=== PATIENT | female | born 1940 | race Caucasian/White ===

== ENCOUNTER 2017-10-02 15:54 | Inpatient (IN) | payer MEDICARE, OTHER ==
[2017-10-02] VITALS (12 sets, daily range): BP systolic 64–140; BP diastolic 44–72
[~2017-10-02] VITALS: Ht 170.2 cm; Wt 63.0 kg
[~2017-10-02 15:54] MED LIST: tirofiban 5mg in NS 100mL 100 ML IV SCH
[2017-10-02 16:29] LABS: BASOPHILS # (AUTO) 0.1 X10'3 (0-0.2); BASOPHILS % (AUTO) 0.7 % (0-1); EOSINOPHILS # (AUTO) 0.4 X10'3 (0-0.9); EOSINOPHILS % (AUTO) 4.8 % (0-6); HEMATOCRIT 36.1 % (35.0-45.0); HEMOGLOBIN 12.2 g/dl (12.0-16.0); MEAN CORPUSCULAR HEMOGLOBIN 29.3 PG (27.0-31.0); MEAN CORPUSCULAR HGB CONC 33.8 % (33.0-36.5); MEAN CORPUSCULAR VOLUME 86.7 FL (78-98); MEAN PLATELET VOLUME 8.3 FL (7.4-10.4); MONOCYTES # (AUTO) 0.8 X10'3 (0-0.9); MONOCYTES % (AUTO) 8.6 % (2-12); NEUTROPHILS # (AUTO) 4.8 X10'3 (1.8-7.7); NEUTROPHILS % (AUTO) 52.9 % (42-75); PLATELET COUNT 290 X10'3 (140-440); RED BLOOD COUNT 4.16 X10'6 (4.20-5.60); RED CELL DISTRIBUTION WIDTH 14.7 % (11.5-14.5)
[2017-10-02 16:44] LABS: ALANINE AMINOTRANSFERASE 26 U/L (12-78); ALBUMIN 3.1 G/DL (3.4-5.0); ALBUMIN/GLOBULIN RATIO 0.8 (1.1-1.5); ALKALINE PHOSPHATASE 92 IU/L (46-116); ANION GAP 10 (8-16); ASPARTATE AMINO TRANSFERASE 21 U/L (10-37); BILIRUBIN,TOTAL 0.2 MG/DL (0.1-1.0); BLOOD UREA NITROGEN 26 MG/DL (7-18); BUN/CREATININE RATIO 25.2 (6.6-38.0); CALCIUM 8.8 MG/DL (8.5-10.1); CHLORIDE 107 MMOL/L (99-107); CREATININE 1.03 MG/DL (0.40-0.90); GLUCOSE 115 MG/DL (70-104); POTASSIUM 4.4 MMOL/L (3.5-5.1); SODIUM 141 MMOL/L (135-145); TOTAL CARBON DIOXIDE 24.3 MMOL/L (24-32); TOTAL PROTEIN 7.1 G/DL (6.4-8.2); eGFR 52 ML/MIN
[2017-10-02] MEDS ORDERED: nicotine 21mg patch - 24 hr TD ONE (17:25)
[2017-10-02] MEDS: normal saline 1000ml 1,000 ML IV SCH (18:17)
[2017-10-02] MEDS ORDERED: potassium Cl 20 mEq SR tablet PO PRN ×2 (18:20)
[2017-10-02] MEDS ORDERED: magnesium 4gm in 100ml NS 100 ML IV PRN (18:20)
[2017-10-02] MEDS ORDERED: heparin 10,000 units/1 ML INJ IV ONE ×2 (18:20→18:35)
[2017-10-02] MEDS ORDERED: acetaminophen 325mg tablet PO PRN ×2 (18:20)
[2017-10-02] MEDS ORDERED: glucagon, human recombinant 1mg kit SUBCUT PRN (18:20)
[2017-10-02] MEDS ORDERED: potassium Cl 40MEQ/NS 500ml 500 ML IV PRN ×2 (18:20)
[2017-10-02] MEDS ORDERED: MESSAGE TO PHARMACY PO ONE (18:20)
[2017-10-02] MEDS ORDERED: magnesium 2GM in 50ml NS 50 ML IV PRN (18:20)
[2017-10-02] MEDS ORDERED: dextrose ORAL solution 15 GM/59 ML bottle PO PRN ×2 (18:20)
[2017-10-02] MEDS ORDERED: ondansetron/PF 4mg/2ml inj IV PRN ×2 (18:20→21:35)
[2017-10-02] MEDS ORDERED: magnesium hydroxide 30ml (MOM) UD suspension PO PRN (18:20)
[2017-10-02] MEDS ORDERED: dextrose 50%-water 50ml dispensing syringe IV PRN (18:20)
[2017-10-02] MEDS ORDERED: heparin 10,000 units/1 ML INJ IV PRN (18:20)
[2017-10-02] MEDS ORDERED: nitroGLYCERIN 0.4mg SUBLingual tab SL PRN ×2 (18:20→21:35)
[2017-10-02] MEDS ORDERED: magnesium Cl slow-release 64mg tablet PO PRN (18:20)
[2017-10-02] MEDS ORDERED: mag hydrox/Alum hydrox/simeth 30ml oral suspension PO PRN (18:20)
[2017-10-02] MEDS: K and/or MAG REPLACEMENT MC SCH (18:20)
[2017-10-02] MEDS ORDERED: insulin Lispro (HumaLOG) vial - multi-dose SQ SCH (18:20)
[2017-10-02] MEDS ORDERED: morphine 4 MG/ML inj SYRINge IV PRN ×2 (18:20)
[2017-10-02] MEDS ORDERED: iohexol 350 MG/1 ML 200ml bottle ONE ×2 (18:40→19:35)
[2017-10-02] MEDS ORDERED: LIDOcaine 1% w/EPI 1:100,000 30ml vial (MDV) ONE (18:40)
[2017-10-02 18:46] LABS: PARTIAL THROMBOPLASTIN TIME 61 SECONDS (22-32); PROTHROMBIN TIME 10.5 SECONDS (9.0-12.0)
[2017-10-02] MEDS ORDERED: midazolam 2 mg/2 ml injection ONE (19:09)
[2017-10-02] MEDS ORDERED: fentaNYL/PF 50MCG/1 ML 2ML syringe ONE (19:09)
[2017-10-02] MEDS ORDERED: heparin 1,000unit/ml 10ml vial 10 ML ONE (19:28)
[2017-10-02] MEDS ORDERED: tirofiban 5mg in NS 100mL 100 ML IV ONE (19:32)
[2017-10-02] MEDS ORDERED: ticagrelor 90mg tablet ONE (19:58)
[2017-10-02 20:32] LABS: HEMOGLOBIN A1C 6.7 % (4.5-6.2)
[2017-10-02] MEDS: insulin glargine (Lantus) pen - multi-dose SQ SCH (21:00)
[2017-10-02] MEDS ORDERED: temazepam 15mg capsule PO PRN (21:00)
[2017-10-02] MEDS ORDERED: HYDROcodone/acetaminophen 5mg/325mg tablet PO PRN (21:35)
[2017-10-02] MEDS ORDERED: normal saline 1000ml 1,000 ML IV SCH (21:35)
[2017-10-02] MEDS ORDERED: OXAZEpam 15mg capsule PO PRN (21:35)
[2017-10-02] MEDS ORDERED: HYDROcodone/acetaminophen 10/325mg tab PO PRN (21:35)
[2017-10-02] MEDS: proCHLORperazine 10 MG/2 ml inj IV PRN (22:01)
[2017-10-02] MEDS ORDERED: clopidogrel 300mg tablet PO ONE (23:20)
[2017-10-02 23:42] LABS: HEMATOCRIT 26.7 % (35.0-45.0); MEAN CORPUSCULAR HEMOGLOBIN 29.5 PG (27.0-31.0); MEAN CORPUSCULAR HGB CONC 33.5 % (33.0-36.5); MEAN CORPUSCULAR VOLUME 87.9 FL (78-98); MEAN PLATELET VOLUME 8.4 FL (7.4-10.4); PLATELET COUNT 259 X10'3 (140-440); RED BLOOD COUNT 3.04 X10'6 (4.20-5.60); RED CELL DISTRIBUTION WIDTH 14.9 % (11.5-14.5); WHITE BLOOD COUNT 8.3 X10'3 (4.5-11.0)
[2017-10-02] MEDS ORDERED: clopidogrel 300mg tablet ONE (23:58)
[2017-10-03] VITALS (24 sets, daily range): BP systolic 60–143; BP diastolic 40–102
[2017-10-03] MEDS ORDERED: furosemide 20 MG/2 ML vial IV ONE (01:40)
[2017-10-03] MEDS ORDERED: MORPHINE 2MG in 2ml NS syringe IV PRN (01:45)
[2017-10-03] MEDS ORDERED: MORPHINE 2MG in 2ml NS syringe IV STA (02:12)
[2017-10-03 04:11] LABS: BASOPHILS % (AUTO) 0.1 % (0-1); EOSINOPHILS # (AUTO) 0.1 X10'3 (0-0.9); EOSINOPHILS % (AUTO) 0.3 % (0-6); HEMATOCRIT 31.8 % (35.0-45.0); HEMOGLOBIN 10.4 g/dl (12.0-16.0); LYMPHOCYTES # (AUTO) 2.4 X10'3 (1.1-4.8); LYMPHOCYTES % (AUTO) 10.5 % (21-51); MEAN CORPUSCULAR HEMOGLOBIN 29.8 PG (27.0-31.0); MEAN CORPUSCULAR HGB CONC 32.7 % (33.0-36.5); MEAN CORPUSCULAR VOLUME 91.1 FL (78-98); MEAN PLATELET VOLUME 8.5 FL (7.4-10.4); MONOCYTES # (AUTO) 0.9 X10'3 (0-0.9); MONOCYTES % (AUTO) 3.8 % (2-12); NEUTROPHILS # (AUTO) 19.3 X10'3 (1.8-7.7); NEUTROPHILS % (AUTO) 85.3 % (42-75); PLATELET COUNT 255 X10'3 (140-440); RED BLOOD COUNT 3.49 X10'6 (4.20-5.60); RED CELL DISTRIBUTION WIDTH 15.6 % (11.5-14.5); WHITE BLOOD COUNT 22.6 X10'3 (4.5-11.0)
[2017-10-03 04:52] LABS: TOTAL CELLS COUNTED 100
[2017-10-03 04:53] LABS: ANISOCYTOSIS 1+; BURR CELLS 1+; PLATELET ESTIMATE NORMAL
[2017-10-03 04:54] LABS: TOXIC VACUOLATION FEW
[2017-10-03 06:42] LABS: ALANINE AMINOTRANSFERASE 185 U/L (12-78); ALBUMIN 2.3 G/DL (3.4-5.0); ALBUMIN/GLOBULIN RATIO 0.7 (1.1-1.5); ALKALINE PHOSPHATASE 133 IU/L (46-116); ANION GAP 26 (8-16); BILIRUBIN,TOTAL 0.5 MG/DL (0.1-1.0); BLOOD UREA NITROGEN 25 MG/DL (7-18); BUN/CREATININE RATIO 15.1 (6.6-38.0); CALCIUM 8.6 MG/DL (8.5-10.1); CHLORIDE 110 MMOL/L (99-107); CHOL/HDL RATIO 3.1 (0.00-4.99); CHOLESTEROL 102 MG/DL (0-200); CREATININE 1.66 MG/DL (0.40-0.90); GLUCOSE 178 MG/DL (70-104); HDL CHOLESTEROL 33 MG/DL (35-60); LDL CHOLESTEROL 62 MG/DL (50-100); MAGNESIUM 2.7 MG/DL (1.5-2.4); SODIUM 144 MMOL/L (135-145); TOTAL PROTEIN 5.6 G/DL (6.4-8.2); TRIGLYCERIDES 108 MG/DL (20-135); eGFR 30 ML/MIN
[2017-10-03 06:43] LABS: ASPARTATE AMINO TRANSFERASE 255 U/L (10-37); PHOSPHORUS 8.7 MG/DL (2.3-4.5)
[2017-10-03 07:08] LABS: TOTAL CARBON DIOXIDE 8.2 MMOL/L (24-32)
[2017-10-03] MEDS ORDERED: ticagrelor 90mg tablet PO SCH (08:00)
[2017-10-03] MEDS: K and/or MAG REPLACEMENT MC SCH (08:00)
[2017-10-03] MEDS ORDERED: clopidogrel 75mg tablet PO SCH (08:00)
[2017-10-03] MEDS: proCHLORperazine 10 MG/2 ml inj IV PRN (08:17)
[2017-10-03] MEDS ORDERED: aspirin 325mg tablet PO SCH (08:30)
[2017-10-03] MEDS ORDERED: aspirin 81mg tab.chew PO SCH (08:30)
[2017-10-03] MEDS ORDERED: TRAM50TA2 PO (08:55)
[2017-10-03] MEDS ORDERED: LEVO50TA8 PO (09:48)
[2017-10-03] MEDS ORDERED: NIFE60TA69 PO (09:48)
[2017-10-03] MEDS ORDERED: LANS30CA56 PO (09:48)
[2017-10-03] MEDS ORDERED: RAMI5CAP PO (09:48)
[2017-10-03] MEDS ORDERED: SIMV40TA PO (09:48)
[2017-10-03] MEDS ORDERED: VENL150T3 PO (09:48)
[2017-10-03] MEDS ORDERED: ONDA4TAB6 PO (09:48)
[2017-10-03] MEDS ORDERED: CLOP75TA35 PO (09:48)
[2017-10-03 10:07] LABS: ABG BASE EXCESS -13.5 mmol/L (-2.0-3.0); ABG HCO3 13.4 mmol/L (22.0-26.0); ABG OXYGEN SATURATION 95.1 % (95-98); ABG PCO2 (T) 34.5 mmHg (32.0-45.0); ABG PH (T) 7.207 (7.350-7.450); ABG PO2 (T) 74.8 mmHg (83-108); ALLEN'S TEST Positive; FCOHb 0.1 % (0.5-1.5); FLOW 21 L/min; TOTAL HEMOGLOBIN 12.9 G/dl (12.0-16.0)
[2017-10-03] MEDS: normal saline 1000ml 1,000 ML IV SCH ×4 (11:35→21:59)
[2017-10-03 12:08] LABS: HEMATOCRIT 37.1 % (35.0-45.0); HEMOGLOBIN 12.6 g/dl (12.0-16.0); MEAN CORPUSCULAR HEMOGLOBIN 29.6 PG (27.0-31.0); MEAN CORPUSCULAR VOLUME 87.1 FL (78-98); MEAN PLATELET VOLUME 8.3 FL (7.4-10.4); PLATELET COUNT 155 X10'3 (140-440); RED BLOOD COUNT 4.27 X10'6 (4.20-5.60); RED CELL DISTRIBUTION WIDTH 15.9 % (11.5-14.5)
[2017-10-03 12:12] LABS: WHITE BLOOD COUNT 31.4 X10'3 (4.5-11.0)
[2017-10-03 12:16] LABS: ALBUMIN 2.4 G/DL (3.4-5.0); ANION GAP 15 (8-16); BLOOD UREA NITROGEN 34 MG/DL (7-18); BUN/CREATININE RATIO 19.8 (6.6-38.0); CALCIUM 8.4 MG/DL (8.5-10.1); CHLORIDE 111 MMOL/L (99-107); CREATININE 1.72 MG/DL (0.40-0.90); GLUCOSE 90 MG/DL (70-104); SODIUM 144 MMOL/L (135-145); TOTAL CARBON DIOXIDE 18.5 MMOL/L (24-32); eGFR 29 ML/MIN
[2017-10-03 12:17] LABS: POTASSIUM 4.3 MMOL/L (3.5-5.1)
[2017-10-03] MEDS ORDERED: morphine 4 MG/ML inj SYRINge IV PRN ×2 (15:10)
[2017-10-03] MEDS: dextrose 50%-water 50ml dispensing syringe IV PRN ×2 (17:17→22:21)
[2017-10-03] MEDS ORDERED: albumin (Human) 5% 250ml 0 ML IV ONE (17:53)
[2017-10-03 17:57] LABS: BASOPHILS % (AUTO) 0.1 % (0-1); EOSINOPHILS % (AUTO) 0.1 % (0-6); HEMOGLOBIN 11.7 g/dl (12.0-16.0); LYMPHOCYTES % (AUTO) 3.4 % (21-51); MEAN CORPUSCULAR HEMOGLOBIN 29.2 PG (27.0-31.0); MEAN CORPUSCULAR HGB CONC 33.5 % (33.0-36.5); MEAN CORPUSCULAR VOLUME 87.3 FL (78-98); MEAN PLATELET VOLUME 9.4 FL (7.4-10.4); MONOCYTES # (AUTO) 0.3 X10'3 (0-0.9); MONOCYTES % (AUTO) 1.1 % (2-12); NEUTROPHILS # (AUTO) 29.2 X10'3 (1.8-7.7); NEUTROPHILS % (AUTO) 95.3 % (42-75); PLATELET COUNT 153 X10'3 (140-440)
[2017-10-03 18:01] LABS: WHITE BLOOD COUNT 30.6 X10'3 (4.5-11.0)
[2017-10-03] MEDS ORDERED: albumin (human) 25% 100 ML IV solution IV ONE (18:15)
[2017-10-03 18:19] LABS: ALANINE AMINOTRANSFERASE 408 U/L (12-78); ALBUMIN 2.4 G/DL (3.4-5.0); ALBUMIN/GLOBULIN RATIO 0.8 (1.1-1.5); ALKALINE PHOSPHATASE 109 IU/L (46-116); ANION GAP 24 (8-16); ASPARTATE AMINO TRANSFERASE 704 U/L (10-37); BILIRUBIN,TOTAL 0.8 MG/DL (0.1-1.0); BLOOD UREA NITROGEN 41 MG/DL (7-18); BUN/CREATININE RATIO 16.9 (6.6-38.0); CALCIUM 8.4 MG/DL (8.5-10.1); CHLORIDE 108 MMOL/L (99-107); CREATININE 2.42 MG/DL (0.40-0.90); POTASSIUM 4.9 MMOL/L (3.5-5.1); SODIUM 144 MMOL/L (135-145); TOTAL PROTEIN 5.4 G/DL (6.4-8.2); eGFR 20 ML/MIN
[2017-10-03 18:23] LABS: TOTAL CARBON DIOXIDE 12.1 MMOL/L (24-32)
[2017-10-03 18:24] LABS: GLUCOSE 160 MG/DL (70-104)
[2017-10-03] MEDS ORDERED: NORepinephrine 8mg/ 250ml NS 250 ML IV ONE (18:43)
[2017-10-03] MEDS ORDERED: rocuronium 10mg/ml inj IV ONE (18:50)
[2017-10-03] MEDS ORDERED: etomidate 2mg/ml inj. IV ONE (18:50)
[2017-10-03 19:57] LABS: ABG BASE EXCESS -29.2 mmol/L (-2.0-3.0); ABG HCO3 6.4 mmol/L (22.0-26.0); ABG OXYGEN SATURATION 97.6 % (95-98); ABG PCO2 (T) 49.4 mmHg (32.0-45.0); ABG PH (T) 6.731 (7.350-7.450); ABG PO2 (T) 163.9 mmHg (83-108); FCOHb 0.3 % (0.5-1.5); FMetHb 0.3 % (0.3-1.12); MINUTE VOLUME 8 L/min; PEEP 5 cm H2O; RESPIRATORY RATE 18 b/min; RESPIRATORY RATE (OBSERVED) 18 b/min; TIDAL VOLUME 400 mL; TOTAL HEMOGLOBIN 12.1 G/dl (12.0-16.0)
[2017-10-03] MEDS ORDERED: normal saline 1000ml 1,000 ML IV ONE (20:40)
[2017-10-03] MEDS: NORepinephrine 8mg/ 250ml NS 250 ML IV PRN (20:48)
[2017-10-03] MEDS: insulin glargine (Lantus) pen - multi-dose SQ SCH (21:00)
[2017-10-03 22:30] LABS: ABG BASE EXCESS -26.1 mmol/L (-2.0-3.0); ABG HCO3 6.8 mmol/L (22.0-26.0); ABG OXYGEN SATURATION 98.5 % (95-98); ABG PCO2 (T) 39.6 mmHg (32.0-45.0); ABG PH (T) 6.848 (7.350-7.450); ABG PO2 (T) 237.8 mmHg (83-108); ALLEN'S TEST Positive; FCOHb 0.2 % (0.5-1.5); FMetHb 0.3 % (0.3-1.12); MINUTE VOLUME 10 L/min; PATIENT TEMPERATURE 36.4; PEEP 5 cm H2O; RESPIRATORY RATE 24 b/min; RESPIRATORY RATE (OBSERVED) 24 b/min; TIDAL VOLUME 400 mL; TOTAL HEMOGLOBIN 10.1 G/dl (12.0-16.0)
[2017-10-03 22:55] LABS: ALBUMIN 2.1 G/DL (3.4-5.0); ANION GAP 25 (8-16); BLOOD UREA NITROGEN 43 MG/DL (7-18); BUN/CREATININE RATIO 15.9 (6.6-38.0); CALCIUM 7.4 MG/DL (8.5-10.1); CHLORIDE 108 MMOL/L (99-107); GLUCOSE 241 MG/DL (70-104); SODIUM 143 MMOL/L (135-145); eGFR 17 ML/MIN
[2017-10-03 23:01] LABS: POTASSIUM 6.8 MMOL/L (3.5-5.1)
[2017-10-03 23:02] LABS: TOTAL CARBON DIOXIDE 10.2 MMOL/L (24-32)
[2017-10-03] MEDS ORDERED: dextrose 50%-water 50ml dispensing syringe IV ONE (23:35)
[2017-10-03] MEDS ORDERED: sodium bicarbonate (8.4%) 1 mEq/ml syringe IV ONE (23:35)
[2017-10-03] MEDS ORDERED: calcium chloride inj. 1,000 MG in normal saline 100ml IV soln 90 ML IV ONE (23:35)
[2017-10-03] MEDS ORDERED: insulin regular, human 10 units/0.1 ml syringe IV ONE (23:35)
[2017-10-03 23:51] LABS: CLARITY,URINE CLOUDY (Clear); COLOR,URINE YELLOW (Yellow); GLUCOSE, URINE NEGATIVE (Neg); KETONES,URINE TRACE mg/dl (Neg); LEUKOCYTE ESTERASE ,URINE MODERATE (Neg); NITRITES, URINE NEGATIVE (Neg); OCCULT BLOOD,URINE LARGE (Neg); PH,URINE 5.5 (4.8-8.0); PROTEIN,URINE 30 mg/dl (Neg); UA COLLECTION TYPE FOLEY CATH
[2017-10-03 23:56] LABS: BACTERIA,URINE 4+ /HPF (Neg); SQUAMOUS EPITHELIAL CELL,UR MANY /LPF (FEW); WBC,URINE TNTC /HPF (0-4)
[2017-10-04] VITALS (26 sets, daily range): BP systolic 63–127; BP diastolic 35–63
[2017-10-04] MEDS ORDERED: insulin regular, human vial - multi-dose ONE (00:01)
[2017-10-04] MEDS ORDERED: calcium chloride 100 MG/1 ML inj IV ONE ×2 (00:02→04:58)
[2017-10-04 01:37] LABS: HEMATOCRIT 27.3 % (35.0-45.0); HEMOGLOBIN 9.2 g/dl (12.0-16.0); MEAN CORPUSCULAR HEMOGLOBIN 29.5 PG (27.0-31.0); MEAN CORPUSCULAR HGB CONC 33.6 % (33.0-36.5); MEAN CORPUSCULAR VOLUME 87.9 FL (78-98); MEAN PLATELET VOLUME 8.8 FL (7.4-10.4); PLATELET COUNT 133 X10'3 (140-440); RED BLOOD COUNT 3.11 X10'6 (4.20-5.60); RED CELL DISTRIBUTION WIDTH 15.6 % (11.5-14.5); WHITE BLOOD COUNT 21.2 X10'3 (4.5-11.0)
[2017-10-04] MEDS ORDERED: sodium bicarbonate (8.4%) 1 mEq/ml syringe IV ONE ×2 (02:00→04:40)
[2017-10-04 03:27] LABS: BASOPHILS % (AUTO) 0 % (0-1); EOSINOPHILS % (AUTO) 0 % (0-6); HEMATOCRIT 28.1 % (35.0-45.0); HEMOGLOBIN 9.4 g/dl (12.0-16.0); LYMPHOCYTES # (AUTO) 1.4 X10'3 (1.1-4.8); MEAN CORPUSCULAR HEMOGLOBIN 29.6 PG (27.0-31.0); MEAN CORPUSCULAR HGB CONC 33.4 % (33.0-36.5); MEAN CORPUSCULAR VOLUME 88.4 FL (78-98); MEAN PLATELET VOLUME 9.9 FL (7.4-10.4); MONOCYTES # (AUTO) 0.2 X10'3 (0-0.9); MONOCYTES % (AUTO) 1.4 % (2-12); NEUTROPHILS # (AUTO) 16.2 X10'3 (1.8-7.7); NEUTROPHILS % (AUTO) 90.6 % (42-75); PLATELET COUNT 134 X10'3 (140-440); RED BLOOD COUNT 3.17 X10'6 (4.20-5.60); RED CELL DISTRIBUTION WIDTH 16.3 % (11.5-14.5); WHITE BLOOD COUNT 17.9 X10'3 (4.5-11.0)
[2017-10-04] MEDS: NORepinephrine 8mg/ 250ml NS 250 ML IV PRN (03:52)
[2017-10-04 03:59] LABS: ALBUMIN 2.5 G/DL (3.4-5.0); ALKALINE PHOSPHATASE 132 IU/L (46-116); ANION GAP 22 (8-16); BILIRUBIN,TOTAL 0.8 MG/DL (0.1-1.0); BLOOD UREA NITROGEN 47 MG/DL (7-18); BUN/CREATININE RATIO 15.8 (6.6-38.0); CALCIUM 7.6 MG/DL (8.5-10.1); CHLORIDE 109 MMOL/L (99-107); CREATININE 2.97 MG/DL (0.40-0.90); GLUCOSE 130 MG/DL (70-104); MAGNESIUM 2.5 MG/DL (1.5-2.4); SODIUM 145 MMOL/L (135-145); TOTAL PROTEIN 4.9 G/DL (6.4-8.2); eGFR 15 ML/MIN
[2017-10-04 04:15] LABS: ABG HCO3 10.5 mmol/L (22.0-26.0); ABG OXYGEN SATURATION 94.5 % (95-98); ABG PH (T) 7.105 (7.350-7.450); ALLEN'S TEST Positive; FCOHb 0.3 % (0.5-1.5); FMetHb 0.3 % (0.3-1.12); FO2Hb 93.9 % (94-100); MINUTE VOLUME 12 L/min; PATIENT TEMPERATURE 36.4; PEEP 5 cm H2O; RESPIRATORY RATE 24 b/min; RESPIRATORY RATE (OBSERVED) 24 b/min; TIDAL VOLUME 450 mL; TOTAL HEMOGLOBIN 9.5 G/dl (12.0-16.0)
[2017-10-04 04:20] LABS: ANISOCYTOSIS 1+; BURR CELLS 1+; PLATELET ESTIMATE DECREASED; POIKILOCYTOSIS FEW; TOTAL CELLS COUNTED 100
[2017-10-04 04:29] LABS: POTASSIUM 7.3 MMOL/L (3.5-5.1); TOTAL CARBON DIOXIDE 13.6 MMOL/L (24-32)
[2017-10-04 04:30] LABS: ASPARTATE AMINO TRANSFERASE 4443 U/L (10-37); PHOSPHORUS 12.6 MG/DL (2.3-4.5)
[2017-10-04 04:31] LABS: ALANINE AMINOTRANSFERASE 2742 U/L (12-78)
[2017-10-04] MEDS ORDERED: insulin regular, human 10 units/0.1 ml syringe IV ONE (04:40)
[2017-10-04] MEDS ORDERED: calcium chloride inj. 1,000 MG in normal saline 100ml IV soln 90 ML IV ONE (04:40)
[2017-10-04] MEDS ORDERED: dextrose 50%-water 50ml dispensing syringe IV ONE (04:40)
[2017-10-04 05:52] LABS: HEMOGLOBIN 8.4 g/dl (12.0-16.0); MEAN CORPUSCULAR HEMOGLOBIN 29.5 PG (27.0-31.0); MEAN CORPUSCULAR HGB CONC 33.5 % (33.0-36.5); MEAN CORPUSCULAR VOLUME 88.2 FL (78-98); MEAN PLATELET VOLUME 9.7 FL (7.4-10.4); PLATELET COUNT 111 X10'3 (140-440); RED BLOOD COUNT 2.84 X10'6 (4.20-5.60); RED CELL DISTRIBUTION WIDTH 16.4 % (11.5-14.5); WHITE BLOOD COUNT 11.8 X10'3 (4.5-11.0)
[2017-10-04] MEDS ORDERED: vasopressin inj. 60 UNIT in normal saline 100ml IV soln 97 ML IV SCH (06:45)
[2017-10-04] MEDS ORDERED: phenylephrine inj 10 MG in normal saline 250ml IV soln 249 ML IV SCH (06:45)
[2017-10-04] MEDS ORDERED: normal saline 1000ml 1,000 ML IV SCH (07:00)
[2017-10-04] MEDS ORDERED: sodium polystyrene sulfonate 15gm/60ml oral suspension PO ONE (07:00)
[2017-10-04] MEDS ORDERED: rocuronium 10mg/ml inj IV ONE (08:00)
[2017-10-04] MEDS ORDERED: etomidate 2mg/ml inj. ONE (08:00)
[2017-10-04 08:18] LABS: INR 1.9 INR; PARTIAL THROMBOPLASTIN TIME 37 SECONDS (22-32)
[2017-10-04] MEDS ORDERED: epiNEPHrine 0.1mg/ml 10ml syringe ONE (10:00)
== END 2017-10-04 15:01 | disposition expired | DRG 246 ==
LOC: ER 15:54 → ED HOLD 18:17 → PCU 3S 20:44 → CICU 2S 10-03 18:06
PROVIDERS: ADMIT Family Medicine; ATTEND Internal Medicine
PROC: 027034Z Dilation of Coronary Artery, One Artery with Drug-eluting Intraluminal Device, Percutaneous Approach (ICD-10-PCS; principal; 2017-10-02)
PROC: B3121ZZ Fluoroscopy of Left Subclavian Artery using Low Osmolar Contrast (ICD-10-PCS; 2017-10-02)
PROC: B2131ZZ Fluoroscopy of Multiple Coronary Artery Bypass Grafts using Low Osmolar Contrast (ICD-10-PCS; 2017-10-02)
PROC: B41J1ZZ Fluoroscopy of Other Lower Arteries using Low Osmolar Contrast (ICD-10-PCS; 2017-10-02)
PROC: 5A12012 Performance of Cardiac Output, Single, Manual (ICD-10-PCS; 2017-10-03)
PROC: 5A1935Z Respiratory Ventilation, Less than 24 Consecutive Hours (ICD-10-PCS; 2017-10-03)
PROC: 5A09357 Assistance with Respiratory Ventilation, Less than 24 Consecutive Hours, Continuous Positive Airway Pressure (ICD-10-PCS; 2017-10-03)
PROC: 0BH17EZ Insertion of Endotracheal Airway into Trachea, Via Natural or Artificial Opening (ICD-10-PCS; 2017-10-03)
PROC: 30233N1 Transfusion of Nonautologous Red Blood Cells into Peripheral Vein, Percutaneous Approach (ICD-10-PCS; 2017-10-03)
PROC: 05HM33Z Insertion of Infusion Device into Right Internal Jugular Vein, Percutaneous Approach (ICD-10-PCS; 2017-10-03)
PROC: B543ZZA Ultrasonography of Right Jugular Veins, Guidance (ICD-10-PCS; 2017-10-03)
DX: I21.4 Non-ST elevation (NSTEMI) myocardial infarction (principal); G93.40 Encephalopathy, unspecified; K66.1 Hemoperitoneum; J96.90 Respiratory failure, unspecified, unspecified whether with hypoxia or hypercapnia; N17.9 Acute kidney failure, unspecified; D62 Acute posthemorrhagic anemia; I97.610 Postprocedural hemorrhage of a circulatory system organ or structure following a cardiac catheterization; R57.1 Hypovolemic shock; R57.0 Cardiogenic shock; N18.3 Chronic kidney disease, stage 3 (moderate); I25.700 Atherosclerosis of coronary artery bypass graft(s), unspecified, with unstable angina pectoris; E11.22 Type 2 diabetes mellitus with diabetic chronic kidney disease; E11.51 Type 2 diabetes mellitus with diabetic peripheral angiopathy without gangrene; I70.219 Atherosclerosis of native arteries of extremities with intermittent claudication, unspecified extremity; I35.0 Nonrheumatic aortic (valve) stenosis; E87.5 Hyperkalemia; R74.0 Nonspecific elevation of levels of transaminase and lactic acid dehydrogenase [LDH]; F12.90 Cannabis use, unspecified, uncomplicated; F17.200 Nicotine dependence, unspecified, uncomplicated; I12.9 Hypertensive chronic kidney disease with stage 1 through stage 4 chronic kidney disease, or unspecified chronic kidney disease; Z90.49 Acquired absence of other specified parts of digestive tract; Z95.1 Presence of aortocoronary bypass graft; Y83.8 Other surgical procedures as the cause of abnormal reaction of the patient, or of later complication, without mention of misadventure at the time of the procedure; Y92.239 Unspecified place in hospital as the place of occurrence of the external cause; I25.2 Old myocardial infarction; Z79.02 Long term (current) use of antithrombotics/antiplatelets; Z79.82 Long term (current) use of aspirin; Z79.899 Other long term (current) drug therapy; Z71.6 Tobacco abuse counseling
CPT/HCPCS: 36556; 92950; 93306; 93454; 99291; C9604; 36415; 36600; 71045; 74176; 80048; 80053; 80061; 81001; 82803; 82948; 83036; 83605; 83735; 83880; 84100; 84145; 84484; 85018; 85025; 85027; 85610; 85730; 86885; 86900; 86901; 86920; 87070; 87077; 87185; 93005; 94002; 94003; 94660; 94760; 99152; 99153; A4620; A6213; A6257; C1725; C1751; C1758; C1760; C1769; C1874; J0171; J0780; J1644; J1815; J1940; J2250; J2270; J2274; J2370; J2405; J3010; J3246; J3490; J7030; J7040; P9016; P9045; P9047; Q9967